=== PATIENT | female | born 1980 | race Caucasian/White ===

== ENCOUNTER 2017-07-09 06:38 | Emergency (ER) | payer MEDICAID ==
[~2017-07-09] VITALS: Ht 162.6 cm; Wt 81.6 kg
[2017-07-09 06:50] VITALS: BP 119/85
[2017-07-09] MEDS ORDERED: cefTRIAXone SOD 1,000 MG VL IM ONE (07:30)
[2017-07-09] MEDS ORDERED: KETOROLAC TROMETH 60MG/2ML VIAL IM ONE (07:30)
[2017-07-09] MEDS ORDERED: HYDROcodone-ACET 10/325MG TAB PO ONE (07:30)
== END 2017-07-09 09:16 | disposition home or self-care (01) ==
LOC: ER 06:43
DX: K08.89 Other specified disorders of teeth and supporting structures (principal); L03.211 Cellulitis of face
CPT/HCPCS: 70486; 96372; 99284; J0696; J1885